=== PATIENT | male | born 1995 | race Caucasian/White ===

== ENCOUNTER 2019-06-28 12:33 | Emergency (ER) | payer SELFPAY ==
--- NOTE | 2019-06-28 12:53 | NUR ---
NOT IN LOBBY
--- NOTE | 2019-06-28 13:09 | NUR ---
NOT IN LOBBY
--- NOTE | 2019-06-28 13:20 | NUR ---
NOT IN LOBBY
== END 2019-06-28 13:21 | disposition left against medical advice (07) ==
LOC: ER 12:34
DX: Z53.21 Procedure and treatment not carried out due to patient leaving prior to being seen by health care provider (principal)

== ENCOUNTER 2019-06-28 13:51 | Emergency (ER) | payer SELFPAY | END 2019-06-28 15:06 | disposition home or self-care (01) | LOC: ER 13:51 | DX: Z02.79 Encounter for issue of other medical certificate (principal); F15.90 Other stimulant use, unspecified, uncomplicated; F11.90 Opioid use, unspecified, uncomplicated; F17.200 Nicotine dependence, unspecified, uncomplicated; Z59.0 Homelessness | CPT/HCPCS: 99281 ==

== ENCOUNTER 2019-07-12 03:42 | Emergency (ER) | payer SELFPAY ==
[~2019-07-12] VITALS: Ht 175.3 cm; Wt 75.0 kg
[2019-07-12 04:39] VITALS: BP 125/66
[2019-07-12] MEDS ORDERED: pantoprazole 40 MG vial IV ONE (05:35)
[2019-07-12] MEDS ORDERED: ondansetron/PF 4mg/2ml inj IV ONE (05:35)
[2019-07-12] MEDS ORDERED: normal saline 1000ML IV soln IVB ONE (05:35)
[2019-07-12] MEDS ORDERED: ondansetron 4mg rapidly disintigrating tab PO ONE (05:55)
[2019-07-12] MEDS ORDERED: pantoprazole 40mg Tablet.DR PO ONE (07:30)
== END 2019-07-12 06:41 | disposition home or self-care (01) ==
LOC: ER 03:43
DX: F19.10 Other psychoactive substance abuse, uncomplicated (principal); R10.13 Epigastric pain; R11.2 Nausea with vomiting, unspecified; F17.200 Nicotine dependence, unspecified, uncomplicated; F15.90 Other stimulant use, unspecified, uncomplicated; F11.90 Opioid use, unspecified, uncomplicated; Z72.89 Other problems related to lifestyle; Z60.2 Problems related to living alone; Z59.0 Homelessness
CPT/HCPCS: 99283

== ENCOUNTER 2019-08-29 19:40 | Emergency (ER) | payer OTHER, MEDICAID ==
[~2019-08-29] VITALS: Ht 175.3 cm; Wt 68.2 kg
[2019-08-29 19:51] VITALS: BP 130/76
[2019-08-29] MEDS ORDERED: CLIN-97 PO (20:16)
[2019-08-29] MEDS ORDERED: ketorolac tromethamine 15mg/ml inj. IM ONE ×2 (20:20→20:35)
[2019-08-29] MEDS ORDERED: ketorolac trometh. 30mg/ml inj. IM ONE (21:50)
== END 2019-08-29 21:59 | disposition home or self-care (01) ==
LOC: ER 19:41
DX: K05.10 Chronic gingivitis, plaque induced (principal); K04.01 Reversible pulpitis; K02.9 Dental caries, unspecified; F15.90 Other stimulant use, unspecified, uncomplicated; F11.90 Opioid use, unspecified, uncomplicated; Z86.19 Personal history of other infectious and parasitic diseases; Z60.2 Problems related to living alone; Z59.0 Homelessness; Z79.899 Other long term (current) drug therapy
CPT/HCPCS: 96372; 99283; J1885

== ENCOUNTER 2019-09-22 22:04 | Emergency (ER) | payer MEDICAID, OTHER ==
[~2019-09-22] VITALS: Ht 175.3 cm; Wt 76.4 kg
[~2019-09-22 22:04] MED LIST: CLIN-97 PO
[2019-09-22] MEDS ORDERED: aspirin 81mg tab.chew PO ONE (22:50)
[2019-09-22 23:03] LABS: URINE AMPHETAMINE SCREEN POSITIVE (Neg); URINE BARBITUATE SCREEN NEGATIVE (Neg); URINE BENZODIAZEPINES SCREEN NEGATIVE (Neg); URINE CANNABINOID SCREEN NEGATIVE (Neg); URINE COCAINE SCREEN NEGATIVE (Neg); URINE METHADONE SCREEN NEGATIVE (Neg); URINE OPIATE SCREEN POSITIVE (Neg); URINE PHENCYCLIDINE SCREEN NEGATIVE (Neg)
[2019-09-22 23:24] LABS: BASOPHILS % (AUTO) 0.2 % (0-1); EOSINOPHILS % (AUTO) 0.8 % (0-6); HEMOGLOBIN 15.3 g/dl (14.0-17.9); LYMPHOCYTES # (AUTO) 2.3 X10'3 (1.1-4.8); LYMPHOCYTES % (AUTO) 36.2 % (21-51); MEAN CORPUSCULAR HEMOGLOBIN 31.6 PG (27.0-31.0); MEAN CORPUSCULAR HGB CONC 34.8 g/dL (33.0-36.5); MEAN CORPUSCULAR VOLUME 90.8 FL (78-98); MEAN PLATELET VOLUME 9.4 FL (7.4-10.4); MONOCYTES # (AUTO) 0.8 X10'3 (0-0.9); MONOCYTES % (AUTO) 13.4 % (2-12); NEUTROPHILS # (AUTO) 3.1 X10'3 (1.8-7.7); NEUTROPHILS % (AUTO) 49.4 % (42-75); PLATELET COUNT 149 X10'3 (140-440); RED BLOOD COUNT 4.84 X10'6 (4.70-6.10); RED CELL DISTRIBUTION WIDTH 14.6 % (11.5-14.5); WHITE BLOOD COUNT 6.3 X10'3 (4.5-11.0)
[2019-09-22 23:39] LABS: ALANINE AMINOTRANSFERASE 336 U/L (12-78); ALBUMIN 4.2 G/DL (3.4-5.0); ALBUMIN/GLOBULIN RATIO 1.1 (1.1-1.5); ALKALINE PHOSPHATASE 139 IU/L (46-116); ANION GAP 8 (8-16); ASPARTATE AMINO TRANSFERASE 134 U/L (10-37); BLOOD UREA NITROGEN 18 MG/DL (7-18); BUN/CREATININE RATIO 18.2 (5.4-32.0); CALCIUM 8.9 MG/DL (8.5-10.1); CHLORIDE 102 MMOL/L (99-107); CREATININE 0.99 MG/DL (0.60-1.10); GLUCOSE 84 MG/DL (70-104); SODIUM 139 MMOL/L (135-145); TOTAL CARBON DIOXIDE 28.9 MMOL/L (24-32); eGFR > 90 ML/MIN
[2019-09-22 23:46] LABS: ETHANOL < 0.010 GM/DL (0.0-0.010); MAGNESIUM 2.1 MG/DL (1.5-2.4); TROPONIN I < 0.04 NG/ML (0.0-0.05)
[2019-09-23 00:06] VITALS: BP 126/71
[2019-11-06] MEDS ORDERED: CEPH500C5 PO (20:13)
[2019-11-06] MEDS ORDERED: NALO4SPR NS (20:15)
== END 2019-09-23 00:05 | disposition home or self-care (01) ==
LOC: ER 22:04
DX: R51 Headache (principal); R07.89 Other chest pain; H53.8 Other visual disturbances; R74.0 Nonspecific elevation of levels of transaminase and lactic acid dehydrogenase [LDH]; F15.90 Other stimulant use, unspecified, uncomplicated; F11.90 Opioid use, unspecified, uncomplicated; Z86.19 Personal history of other infectious and parasitic diseases; Z72.89 Other problems related to lifestyle; Z60.2 Problems related to living alone; Z59.0 Homelessness; Z79.899 Other long term (current) drug therapy
CPT/HCPCS: 36415; 70450; 71045; 80053; 80305; 80320; 83735; 83880; 84484; 85025; 93005; 99285

== ENCOUNTER 2019-11-04 10:50 | Emergency (ER) | payer MEDICAID ==
[~2019-11-04] VITALS: Ht 175.3 cm; Wt 54.5 kg
[2019-11-04 11:08] VITALS: BP 137/63
--- NOTE | 2019-11-06 10:03 | NUR ---
PT WOUND CULTURES BACK AND RESULTS MRSA. PT PUT ON BACTRIM AT [facility]. MRSA IS RESISTENT. KEFLEX 500MG BID X [address] HERNANDEZ. CALL PLACED TO [phone] AND MSG LEFT.
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
[2019-11-06] MEDS ORDERED: CEPH500C5 PO (20:13)
[2019-11-06] MEDS ORDERED: NALO4SPR NS (20:15)
== END 2019-11-04 11:40 | disposition home or self-care (01) ==
LOC: ER 10:50
DX: L02.415 Cutaneous abscess of right lower limb (principal); L03.115 Cellulitis of right lower limb; F15.90 Other stimulant use, unspecified, uncomplicated; F11.90 Opioid use, unspecified, uncomplicated; Z72.89 Other problems related to lifestyle; Z86.19 Personal history of other infectious and parasitic diseases; Z60.2 Problems related to living alone; Z59.0 Homelessness; Z79.899 Other long term (current) drug therapy
CPT/HCPCS: 87070; 87077; 87186; 99283

== ENCOUNTER 2020-01-08 09:18 | Emergency (ER) | payer MEDICAID ==
[~2020-01-08] VITALS: Ht 175.3 cm; Wt 75.0 kg
[~2020-01-08 09:18] MED LIST changes: +NALO4SPR NS
[2020-01-08] MEDS ORDERED: buprenorphine/naloxone 8mg/2mg SL tablet SL STA (10:19)
[2020-01-08] MEDS ORDERED: buprenorphine/naloxone 8MG-2MG SUBlingual film SL STA (10:22)
[2020-01-08] MEDS ORDERED: buprenorphine/naloxone 8MG-2MG SUBlingual film SL ONE (11:15)
[2020-01-08] MEDS ORDERED: buprenorphine/naloxone 8MG-2MG SUBlingual film SL SCH (11:15)
[2020-01-08] MEDS ORDERED: CHLO25CA10 PO (11:32)
[2020-01-08] MEDS ORDERED: BUPR1FIL5 SL (11:32)
[2020-01-08] MEDS ORDERED: ONDA4TAB6 PO (11:32)
[2020-01-08] MEDS ORDERED: GABA300C PO (11:32)
[2020-01-08 11:53] VITALS: BP 107/63
== END 2020-01-08 11:54 | disposition home or self-care (01) ==
LOC: ER 09:19
DX: F11.10 Opioid abuse, uncomplicated (principal); F15.10 Other stimulant abuse, uncomplicated; F10.10 Alcohol abuse, uncomplicated; Z86.19 Personal history of other infectious and parasitic diseases; Z60.2 Problems related to living alone; Z59.0 Homelessness; Z79.2 Long term (current) use of antibiotics; Z79.899 Other long term (current) drug therapy; Y90.9 Presence of alcohol in blood, level not specified
CPT/HCPCS: 99283

== ENCOUNTER 2020-02-11 | Emergency (ER) | payer MEDICAID ==
[~2020-02-11] VITALS: Ht 175.3 cm; Wt 79.0 kg
[~2020-02-11] MED LIST changes: +BUPR1FIL5 SL; +CHLO25CA10 PO; +GABA300C PO; +ONDA4TAB6 PO
[2020-02-11 00:05] VITALS: BP 125/72
[2020-02-11] MEDS ORDERED: SULF1TAB49 PO (00:47)
[2020-02-11] MEDS ORDERED: acetaminophen 325mg tablet PO ONE (01:00)
[2020-02-12] MEDS ORDERED: BACDS PO (16:25)
[2020-02-12] MEDS ORDERED: CEPH500C5 PO (16:25)
== END 2020-02-11 01:16 | disposition home or self-care (01) ==
LOC: ER
DX: L03.011 Cellulitis of right finger (principal); F15.90 Other stimulant use, unspecified, uncomplicated; F11.90 Opioid use, unspecified, uncomplicated; Z86.19 Personal history of other infectious and parasitic diseases; Z60.2 Problems related to living alone; Z59.0 Homelessness; Z79.2 Long term (current) use of antibiotics; Z79.899 Other long term (current) drug therapy
CPT/HCPCS: 99283

== ENCOUNTER 2020-02-12 03:07 | Emergency (ER) | payer MEDICAID ==
[~2020-02-12] VITALS: Ht 175.3 cm; Wt 75.0 kg
[~2020-02-12 03:07] MED LIST changes: +SULF1TAB49 PO
[2020-02-12 03:15] VITALS: BP 131/82
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
[2020-02-12] MEDS ORDERED: ondansetron 4mg rapidly disintigrating tab PO ONE (04:05)
[2020-02-12] MEDS ORDERED: acetaminophen 325mg tablet PO ONE (04:05)
[2020-02-12] MEDS ORDERED: ketorolac tromethamine 15mg/ml inj. IM ONE (05:00)
[2020-02-12] MEDS ORDERED: BACDS PO (16:25)
[2020-02-12] MEDS ORDERED: CEPH500C5 PO (16:25)
[2020-02-13] MEDS ORDERED: NO HOME MEDS (07:44)
== END 2020-02-12 05:52 | disposition home or self-care (01) ==
LOC: ER 03:07
DX: S06.0X0A Concussion without loss of consciousness, initial encounter (principal); S00.03XA Contusion of scalp, initial encounter; S00.83XA Contusion of other part of head, initial encounter; F15.90 Other stimulant use, unspecified, uncomplicated; F11.90 Opioid use, unspecified, uncomplicated; Z86.19 Personal history of other infectious and parasitic diseases; Z60.2 Problems related to living alone; Z59.0 Homelessness; Z79.2 Long term (current) use of antibiotics; Z79.899 Other long term (current) drug therapy; Y04.2XXA Assault by strike against or bumped into by another person, initial encounter; Y93.89 Activity, other specified; Y92.89 Other specified places as the place of occurrence of the external cause; Y99.8 Other external cause status
CPT/HCPCS: 70450; 70486; 96372; 99285; J1885; 99283

== ENCOUNTER 2020-02-12 12:07 | Inpatient (IN) | payer MEDICAID ==
[~2020-02-12] VITALS: Ht 167.6 cm; Wt 75.0 kg
[2020-02-12] MEDS ORDERED: acetaminophen 325mg tablet PO STA (12:36)
[2020-02-12] MEDS ORDERED: normal saline 1000ML IV soln IV ONE (12:40)
[2020-02-12] MEDS ORDERED: vancomycin/NS 1 GM ADD-VANTAGE 250 ML IV ONE (12:40)
[2020-02-12] MEDS ORDERED: piperacillin/tazo 3.375gm/50ml 50 ML IV ONE (12:40)
[2020-02-12 13:01] LABS: BASOPHILS # (AUTO) 0.1 X10'3 (0-0.2); BASOPHILS % (AUTO) 0.6 % (0-1); EOSINOPHILS % (AUTO) 0.1 % (0-6); HEMATOCRIT 40.7 % (42.0-52.0); LYMPHOCYTES # (AUTO) 1.5 X10'3 (1.1-4.8); LYMPHOCYTES % (AUTO) 8.6 % (21-51); MEAN CORPUSCULAR HEMOGLOBIN 30.6 PG (27.0-31.0); MEAN CORPUSCULAR HGB CONC 34.3 g/dL (33.0-36.5); MEAN CORPUSCULAR VOLUME 89.2 FL (78-98); MEAN PLATELET VOLUME 8.6 FL (7.4-10.4); MONOCYTES # (AUTO) 0.9 X10'3 (0-0.9); MONOCYTES % (AUTO) 5.3 % (2-12); NEUTROPHILS # (AUTO) 14.6 X10'3 (1.8-7.7); NEUTROPHILS % (AUTO) 85.4 % (42-75); PLATELET COUNT 210 X10'3 (140-440); RED BLOOD COUNT 4.57 X10'6 (4.70-6.10); RED CELL DISTRIBUTION WIDTH 13.6 % (11.5-14.5); WHITE BLOOD COUNT 17.1 X10'3 (4.5-11.0)
[2020-02-12 13:24] LABS: ALANINE AMINOTRANSFERASE 27 U/L (12-78); ALBUMIN 3.7 G/DL (3.4-5.0); ALBUMIN/GLOBULIN RATIO 0.8 (1.1-1.5); ALKALINE PHOSPHATASE 88 IU/L (46-116); ANION GAP 4 (8-16); ASPARTATE AMINO TRANSFERASE 22 U/L (10-37); BILIRUBIN,TOTAL 0.9 MG/DL (0.1-1.0); BLOOD UREA NITROGEN 13 MG/DL (7-18); BUN/CREATININE RATIO 13.8 (5.4-32.0); CALCIUM 8.8 MG/DL (8.5-10.1); CHLORIDE 99 MMOL/L (99-107); CREATININE 0.94 MG/DL (0.60-1.10); GLUCOSE 105 MG/DL (70-104); MAGNESIUM 1.9 MG/DL (1.5-2.4); POTASSIUM 4.3 MMOL/L (3.5-5.1); SODIUM 129 MMOL/L (135-145); TOTAL CARBON DIOXIDE 25.6 MMOL/L (24-32); TOTAL PROTEIN 8.4 G/DL (6.4-8.2); eGFR > 90 ML/MIN
[2020-02-12 13:25] LABS: HIV ANTIBODY 1&2 RAPID NON-REACTIVE (Neg)
[2020-02-12 13:55] LABS: CLARITY,URINE CLEAR (Clear); COLOR,URINE YELLOW (Yellow); GLUCOSE, URINE NEGATIVE (Neg); KETONES,URINE NEGATIVE (Neg); LEUKOCYTE ESTERASE ,URINE NEGATIVE (Neg); OCCULT BLOOD,URINE NEGATIVE (Neg); PH,URINE 7.5 (4.8-8.0); PROTEIN,URINE NEGATIVE (Neg)
[2020-02-12 14:00] LABS: NITRITES, URINE NEGATIVE (Neg); UROBILINOGEN,URINE 0.2 E.U/dL (0.2-1.0)
[2020-02-12 14:02] LABS: UA COLLECTION TYPE VOIDED
[2020-02-12] MEDS ORDERED: iohexol 300mg/ml 100ml inj. ONE (14:13)
[2020-02-12] MEDS ORDERED: LORazepam 2 mg/ml vial IV ONE (14:55)
[2020-02-12] MEDS ORDERED: HYDROcodone/acetaminophen 10/325mg tab PO ONE (14:55)
[2020-02-12] MEDS ORDERED: OLANZapine 5mg rapidly disint. tablet PO ONE (15:05)
[2020-02-12] MEDS ORDERED: CEPH500C5 PO (16:25)
[2020-02-12] MEDS ORDERED: BACDS PO (16:25)
[2020-02-12] MEDS ORDERED: potassium Cl 20 mEq SR tablet PO PRN (18:05)
[2020-02-12] MEDS ORDERED: magnesium 4gm in 100ml NS 100 ML IV PRN (18:05)
[2020-02-12] MEDS ORDERED: magnesium Cl slow-release 64mg tablet PO PRN (18:05)
[2020-02-12] MEDS ORDERED: mag hydrox/Alum hydrox/simeth 30ml oral suspension PO PRN (18:05)
[2020-02-12] MEDS ORDERED: potassium CL 10mEq/100ml bag 100 ML IV PRN ×2 (18:05)
[2020-02-12] MEDS ORDERED: acetaminophen 325mg tablet PO PRN ×2 (18:05)
[2020-02-12] MEDS ORDERED: ondansetron/PF 4mg/2ml inj IV PRN (18:05)
[2020-02-12] MEDS ORDERED: bisacodyl 10mg suppository rectal RC PRN (18:05)
[2020-02-12] MEDS: normal saline 1000ml 1,000 ML IV SCH (18:05)
[2020-02-12] MEDS ORDERED: magnesium 2GM in 50ml NS 50 ML IV PRN (18:05)
[2020-02-12] MEDS ORDERED: morphine 2 MG/ML inj. syringe IV PRN ×2 (18:05)
[2020-02-12] MEDS ORDERED: acetaminophen 650mg rectal suppository RC PRN (18:05)
[2020-02-12] MEDS ORDERED: magnesium hydroxide 30ml (MOM) UD suspension PO PRN (18:05)
--- NOTE | 2020-02-12 19:26 | NUR ---
assisting RN with pt, attempted IV x2, no success
[2020-02-12] MEDS: K and/or MAG REPLACEMENT MC SCH (20:00)
--- NOTE | 2020-02-12 20:57 | NUR ---
Report given to SHANELL Hartmann. Pt to be transfered from ED to ORTHO 4014.
--- NOTE | 2020-02-12 20:57 | NUR ---
Received report from SCHEDULER MAINTENANCESHANELL Holder. Patient to follow shortly.
--- NOTE | 2020-02-12 21:10 | NUR ---
Patient arrived to floor via w/c. Patient transferred himself into bed. VS taken.
[2020-02-12 21:20] VITALS: BP 133/78
[2020-02-12] MEDS: HYDROcodone/acetaminophen 10/325mg tab PO PRN (21:35)
[2020-02-12] MEDS: heparin, porcine 5000 units/ml vial SQ SCH (21:37)
--- NOTE | 2020-02-12 22:00 | NUR ---
Patient allowed for a quick MRSA swab to nose and a listen to heart,lungs,belly, but did not co-operative with 2 RN skin check or dart questions. Patient is not very receptive at this time.
[2020-02-13] MEDS: VANCOmycin 1250MG/NS 250ml Bag 250 ML IV SCH ×2 (00:54→16:06)
[2020-02-13] MEDS: piperacillin/tazo 3.375gm/50ml 50 ML IV SCH ×4 (02:55→23:52)
[2020-02-13] MEDS: normal saline 1000ml 1,000 ML IV SCH ×2 (04:05→05:07)
[2020-02-13] MEDS: HYDROcodone/acetaminophen 10/325mg tab PO PRN (05:07)
[2020-02-13 06:00] VITALS: BP 133/75
--- NOTE | 2020-02-13 06:30 | NUR ---
Patient in room ORTHO 4014. I have received report from Mary Kate REECE and had the opportunity to ask questions and assume patient care.
[2020-02-13 06:48] LABS: BASOPHILS % (AUTO) 0.2 % (0-1); EOSINOPHILS % (AUTO) 0.1 % (0-6); HEMATOCRIT 39.5 % (42.0-52.0); HEMOGLOBIN 13.2 g/dl (14.0-17.9); LYMPHOCYTES # (AUTO) 1.6 X10'3 (1.1-4.8); MEAN CORPUSCULAR HEMOGLOBIN 30.3 PG (27.0-31.0); MEAN CORPUSCULAR HGB CONC 33.4 g/dL (33.0-36.5); MEAN CORPUSCULAR VOLUME 90.8 FL (78-98); MEAN PLATELET VOLUME 9.3 FL (7.4-10.4); MONOCYTES # (AUTO) 1.1 X10'3 (0-0.9); MONOCYTES % (AUTO) 7.7 % (2-12); NEUTROPHILS # (AUTO) 11.7 X10'3 (1.8-7.7); PLATELET COUNT 161 X10'3 (140-440); RED BLOOD COUNT 4.35 X10'6 (4.70-6.10); RED CELL DISTRIBUTION WIDTH 13.6 % (11.5-14.5); WHITE BLOOD COUNT 14.4 X10'3 (4.5-11.0)
--- NOTE | 2020-02-13 06:53 | NUR ---
Problems reprioritized. Patient report given, questions answered & plan of care reviewed with Diego RN.
[2020-02-13 06:56] LABS: ALANINE AMINOTRANSFERASE 23 U/L (12-78); ALBUMIN 2.8 G/DL (3.4-5.0); ALBUMIN/GLOBULIN RATIO 0.7 (1.1-1.5); ALKALINE PHOSPHATASE 70 IU/L (46-116); ANION GAP 2 (8-16); ASPARTATE AMINO TRANSFERASE 15 U/L (10-37); BILIRUBIN,TOTAL 0.9 MG/DL (0.1-1.0); BLOOD UREA NITROGEN 8 MG/DL (7-18); BUN/CREATININE RATIO 7.7 (5.4-32.0); CALCIUM 7.9 MG/DL (8.5-10.1); CHLORIDE 103 MMOL/L (99-107); CHOL/HDL RATIO 2.1 (0.00-4.99); CHOLESTEROL 108 MG/DL (0-200); CREATININE 1.04 MG/DL (0.60-1.10); GLUCOSE 146 MG/DL (70-104); HDL CHOLESTEROL 51 MG/DL (35-60); LDL CHOLESTEROL 55 MG/DL (50-100); MAGNESIUM 1.9 MG/DL (1.5-2.4); PHOSPHORUS 2.5 MG/DL (2.3-4.5); POTASSIUM 3.3 MMOL/L (3.5-5.1); SODIUM 131 MMOL/L (135-145); TOTAL CARBON DIOXIDE 25.8 MMOL/L (24-32); TRIGLYCERIDES 37 MG/DL (20-135); eGFR 86 ML/MIN
[2020-02-13] MEDS ORDERED: NO HOME MEDS (07:44)
[2020-02-13] MEDS: K and/or MAG REPLACEMENT MC SCH ×2 (08:00→19:12)
[2020-02-13] MEDS: heparin, porcine 5000 units/ml vial SQ SCH ×2 (08:30→20:02)
[2020-02-13] MEDS: potassium Cl 20 mEq SR tablet PO PRN ×3 (09:48→23:52)
[2020-02-13] MEDS: HYDROcodone/acetaminophen 5mg/325mg tablet PO PRN ×4 (09:48→23:52)
[2020-02-13 10:00] VITALS: BP 135/75
[2020-02-13 18:00] VITALS: BP 108/60
--- NOTE | 2020-02-13 18:30 | NUR ---
Problems reprioritized. Patient report given, questions answered & plan of care reviewed with Vicenta REECE.
[2020-02-13] MEDS: lactobacillus rhamnosus 10,000 MMU CELLS/CAPSULE PO SCH (20:00)
[2020-02-13 20:17] LABS: CLARITY,URINE CLEAR (Clear); COLOR,URINE YELLOW (Yellow); GLUCOSE, URINE NEGATIVE (Neg); KETONES,URINE NEGATIVE (Neg); LEUKOCYTE ESTERASE ,URINE NEGATIVE (Neg); NITRITES, URINE NEGATIVE (Neg); OCCULT BLOOD,URINE NEGATIVE (Neg); PROTEIN,URINE NEGATIVE (Neg); UROBILINOGEN,URINE 0.2 E.U/dL (0.2-1.0)
[2020-02-13 20:18] LABS: UA COLLECTION TYPE NON-SPECIFIED
[2020-02-13 20:20] LABS: URINE AMPHETAMINE SCREEN NEGATIVE (Neg); URINE BARBITUATE SCREEN NEGATIVE (Neg); URINE BENZODIAZEPINES SCREEN NEGATIVE (Neg); URINE CANNABINOID SCREEN NEGATIVE (Neg); URINE COCAINE SCREEN NEGATIVE (Neg); URINE METHADONE SCREEN NEGATIVE (Neg); URINE OPIATE SCREEN POSITIVE (Neg); URINE PHENCYCLIDINE SCREEN NEGATIVE (Neg)
[2020-02-13 22:00] VITALS: BP 125/70
[2020-02-14] MEDS: normal saline 1000ml 1,000 ML IV SCH ×3 (00:05→16:26)
[2020-02-14] MEDS: HYDROcodone/acetaminophen 5mg/325mg tablet PO PRN ×4 (03:44→19:29)
[2020-02-14] MEDS: VANCOmycin 1250MG/NS 250ml Bag 250 ML IV SCH (03:44)
[2020-02-14 05:35] VITALS: BP 125/66
--- NOTE | 2020-02-14 06:37 | NUR ---
Problems reprioritized. Patient report given, questions answered & plan of care reviewed with SHANELL VELOZ.
[2020-02-14 07:41] LABS: BASOPHILS % (AUTO) 0.3 % (0-1); EOSINOPHILS # (AUTO) 0.1 X10'3 (0-0.9); EOSINOPHILS % (AUTO) 0.8 % (0-6); HEMATOCRIT 39.5 % (42.0-52.0); HEMOGLOBIN 13.6 g/dl (14.0-17.9); LYMPHOCYTES # (AUTO) 1.9 X10'3 (1.1-4.8); LYMPHOCYTES % (AUTO) 19.6 % (21-51); MEAN CORPUSCULAR HEMOGLOBIN 31.2 PG (27.0-31.0); MEAN CORPUSCULAR HGB CONC 34.4 g/dL (33.0-36.5); MONOCYTES # (AUTO) 0.9 X10'3 (0-0.9); MONOCYTES % (AUTO) 9.6 % (2-12); NEUTROPHILS # (AUTO) 6.9 X10'3 (1.8-7.7); NEUTROPHILS % (AUTO) 69.7 % (42-75); PLATELET COUNT 171 X10'3 (140-440); RED BLOOD COUNT 4.34 X10'6 (4.70-6.10); RED CELL DISTRIBUTION WIDTH 13.6 % (11.5-14.5); WHITE BLOOD COUNT 9.9 X10'3 (4.5-11.0)
[2020-02-14] MEDS: lactobacillus rhamnosus 10,000 MMU CELLS/CAPSULE PO SCH ×2 (07:47→19:28)
[2020-02-14] MEDS: heparin, porcine 5000 units/ml vial SQ SCH ×2 (07:50→19:32)
[2020-02-14 07:58] LABS: ALANINE AMINOTRANSFERASE 25 U/L (12-78); ALBUMIN 2.8 G/DL (3.4-5.0); ALBUMIN/GLOBULIN RATIO 0.6 (1.1-1.5); ALKALINE PHOSPHATASE 65 IU/L (46-116); ANION GAP 3 (8-16); ASPARTATE AMINO TRANSFERASE 15 U/L (10-37); BILIRUBIN,TOTAL 0.6 MG/DL (0.1-1.0); BLOOD UREA NITROGEN 9 MG/DL (7-18); BUN/CREATININE RATIO 11.5 (5.4-32.0); CALCIUM 8.3 MG/DL (8.5-10.1); CHLORIDE 106 MMOL/L (99-107); CREATININE 0.78 MG/DL (0.60-1.10); GLUCOSE 112 MG/DL (70-104); MAGNESIUM 2.2 MG/DL (1.5-2.4); PHOSPHORUS 3.1 MG/DL (2.3-4.5); POTASSIUM 3.8 MMOL/L (3.5-5.1); SODIUM 135 MMOL/L (135-145); TOTAL CARBON DIOXIDE 25.8 MMOL/L (24-32); TOTAL PROTEIN 7.4 G/DL (6.4-8.2); eGFR > 90 ML/MIN
[2020-02-14] MEDS: piperacillin/tazo 3.375gm/50ml 50 ML IV SCH ×2 (07:58→16:00)
[2020-02-14] MEDS: K and/or MAG REPLACEMENT MC SCH ×2 (08:00→19:33)
[2020-02-14 11:39] VITALS: BP 109/59
[2020-02-14] MEDS ORDERED: VANCOMYCIN LEVEL IV ONE ×2 (13:30)
--- NOTE | 2020-02-14 15:50 | NUR ---
Patient leaving for MRI for second attempt at this time, will hang Vanco when patient returns.
[2020-02-14 18:00] VITALS: BP 119/67
--- NOTE | 2020-02-14 18:27 | NUR ---
Problems reprioritized. Patient report given, questions answered & plan of care reviewed with SHANELL Stoner.
--- NOTE | 2020-02-14 18:27 | NUR ---
Patient in room ORTHO 4014. I have received report from Irene REECE and had the opportunity to ask questions and assume patient care.
[2020-02-14] MEDS ORDERED: piperacillin/tazo 3.375gm/50ml 50 ML IV ONE (20:30)
[2020-02-14 22:00] VITALS: BP 104/46
[2020-02-14] MEDS: HYDROcodone/acetaminophen 10/325mg tab PO PRN (22:03)
[2020-02-15] MEDS: piperacillin/tazo 3.375gm/50ml 50 ML IV SCH ×3 (00:19→17:28)
[2020-02-15] MEDS: HYDROcodone/acetaminophen 10/325mg tab PO PRN ×5 (03:08→20:19)
[2020-02-15] MEDS: normal saline 1000ml 1,000 ML IV SCH ×2 (03:08→16:05)
[2020-02-15 06:00] VITALS: BP 100/37
--- NOTE | 2020-02-15 06:05 | NUR ---
Problems reprioritized. Patient report given, questions answered & plan of care reviewed with Khushbu REECE.
--- NOTE | 2020-02-15 06:10 | NUR ---
Patient in room ORTHO 4014. I have received report from Vicenta and had the opportunity to ask questions and assume patient care. Addendum: 02/15/20 at 0641 by Khushbu Cedeno RN Report from [place]
[2020-02-15 06:18] LABS: ALANINE AMINOTRANSFERASE 30 U/L (12-78); ALBUMIN 2.6 G/DL (3.4-5.0); ALBUMIN/GLOBULIN RATIO 0.6 (1.1-1.5); ALKALINE PHOSPHATASE 65 IU/L (46-116); ANION GAP 8 (8-16); ASPARTATE AMINO TRANSFERASE 17 U/L (10-37); BASOPHILS % (AUTO) 0.4 % (0-1); BILIRUBIN,TOTAL 0.3 MG/DL (0.1-1.0); BLOOD UREA NITROGEN 8 MG/DL (7-18); BUN/CREATININE RATIO 10.5 (5.4-32.0); CALCIUM 8.4 MG/DL (8.5-10.1); CHLORIDE 104 MMOL/L (99-107); CREATININE 0.76 MG/DL (0.60-1.10); EOSINOPHILS # (AUTO) 0.1 X10'3 (0-0.9); EOSINOPHILS % (AUTO) 1.7 % (0-6); GLUCOSE 110 MG/DL (70-104); HEMATOCRIT 38.9 % (42.0-52.0); HEMOGLOBIN 13.4 g/dl (14.0-17.9); LYMPHOCYTES # (AUTO) 2.2 X10'3 (1.1-4.8); LYMPHOCYTES % (AUTO) 26.2 % (21-51); MAGNESIUM 2.2 MG/DL (1.5-2.4); MEAN CORPUSCULAR HEMOGLOBIN 31.4 PG (27.0-31.0); MEAN CORPUSCULAR HGB CONC 34.5 g/dL (33.0-36.5); MEAN PLATELET VOLUME 8.7 FL (7.4-10.4); MONOCYTES # (AUTO) 0.8 X10'3 (0-0.9); MONOCYTES % (AUTO) 9.8 % (2-12); NEUTROPHILS # (AUTO) 5.1 X10'3 (1.8-7.7); NEUTROPHILS % (AUTO) 61.9 % (42-75); PLATELET COUNT 174 X10'3 (140-440); POTASSIUM 3.9 MMOL/L (3.5-5.1); RED BLOOD COUNT 4.28 X10'6 (4.70-6.10); RED CELL DISTRIBUTION WIDTH 13.3 % (11.5-14.5); SODIUM 139 MMOL/L (135-145); TOTAL CARBON DIOXIDE 27.3 MMOL/L (24-32); TOTAL PROTEIN 6.8 G/DL (6.4-8.2); WHITE BLOOD COUNT 8.2 X10'3 (4.5-11.0); eGFR > 90 ML/MIN
[2020-02-15] MEDS: K and/or MAG REPLACEMENT MC SCH ×2 (08:00→20:00)
[2020-02-15] MEDS: lactobacillus rhamnosus 10,000 MMU CELLS/CAPSULE PO SCH ×2 (08:17→20:19)
[2020-02-15] MEDS: heparin, porcine 5000 units/ml vial SQ SCH ×2 (08:19→20:00)
[2020-02-15 10:00] VITALS: BP 102/51
[2020-02-15] MEDS ORDERED: LORazepam 2 mg/ml vial IV STA (10:00)
--- NOTE | 2020-02-15 10:02 | NUR ---
PAGER ID: [phone] MESSAGE: Khushbu Jc on ortho, Mr. Messer in [id number] is requesting ativan for the MRI, please advise, thank you #[phone]
--- NOTE | 2020-02-15 16:22 | NUR ---
PAGER ID: [phone] MESSAGE: Khushbu Jc on ortho, Or Gui in [id number] has c/o uncontrolled pain, anxiety, is being verbally aggressive/swearing, please advise, thank you # [phone]
[2020-02-15] MEDS ORDERED: LORazepam 1 MG tablet PO ONE (16:30)
--- NOTE | 2020-02-15 16:50 | NUR ---
Student documentation: I have reviewed and agree assessment performed and documented by Jacqueline Isabel [facility].
[2020-02-15 18:00] VITALS: BP 113/53
--- NOTE | 2020-02-15 18:24 | NUR ---
Problems reprioritized. Patient report given, questions answered & plan of care reviewed with Beevrly.
--- NOTE | 2020-02-15 18:30 | NUR ---
RECEIVED REPORT FROM SAIDA REECE AND ASSUMED PATIENT CARE
[2020-02-15] MEDS: LORazepam 1 MG tablet PO PRN (19:37)
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
[2020-02-15 22:00] VITALS: BP 109/47
[2020-02-16] MEDS: piperacillin/tazo 3.375gm/50ml 50 ML IV SCH ×3 (00:45→21:09)
[2020-02-16] MEDS ORDERED: VANCOMYCIN LEVEL IV ONE (02:30)
[2020-02-16 02:49] LABS: BASOPHILS # (AUTO) 0.1 X10'3 (0-0.2); BASOPHILS % (AUTO) 0.9 % (0-1); EOSINOPHILS # (AUTO) 0.2 X10'3 (0-0.9); EOSINOPHILS % (AUTO) 2.5 % (0-6); HEMOGLOBIN 13.5 g/dl (14.0-17.9); LYMPHOCYTES # (AUTO) 2.1 X10'3 (1.1-4.8); LYMPHOCYTES % (AUTO) 31.2 % (21-51); MEAN CORPUSCULAR HEMOGLOBIN 31.6 PG (27.0-31.0); MEAN CORPUSCULAR HGB CONC 34.7 g/dL (33.0-36.5); MEAN CORPUSCULAR VOLUME 91.1 FL (78-98); MEAN PLATELET VOLUME 8.5 FL (7.4-10.4); MONOCYTES # (AUTO) 0.7 X10'3 (0-0.9); NEUTROPHILS # (AUTO) 3.7 X10'3 (1.8-7.7); NEUTROPHILS % (AUTO) 55.4 % (42-75); PLATELET COUNT 198 X10'3 (140-440); RED BLOOD COUNT 4.28 X10'6 (4.70-6.10); RED CELL DISTRIBUTION WIDTH 13.5 % (11.5-14.5); WHITE BLOOD COUNT 6.6 X10'3 (4.5-11.0)
[2020-02-16 03:00] LABS: ALANINE AMINOTRANSFERASE 39 U/L (12-78); ALBUMIN 2.7 G/DL (3.4-5.0); ALBUMIN/GLOBULIN RATIO 0.7 (1.1-1.5); ALKALINE PHOSPHATASE 78 IU/L (46-116); ANION GAP 6 (8-16); ASPARTATE AMINO TRANSFERASE 23 U/L (10-37); BILIRUBIN,TOTAL 0.3 MG/DL (0.1-1.0); BLOOD UREA NITROGEN 6 MG/DL (7-18); BUN/CREATININE RATIO 7.5 (5.4-32.0); CALCIUM 8.5 MG/DL (8.5-10.1); CHLORIDE 105 MMOL/L (99-107); GLUCOSE 116 MG/DL (70-104); PHOSPHORUS 4.3 MG/DL (2.3-4.5); POTASSIUM 3.6 MMOL/L (3.5-5.1); SODIUM 139 MMOL/L (135-145); TOTAL CARBON DIOXIDE 28.2 MMOL/L (24-32); TOTAL PROTEIN 6.8 G/DL (6.4-8.2); VANCOMYCIN,TROUGH 9.8 UG/ML (6.0-14.0); eGFR > 90 ML/MIN
[2020-02-16] MEDS: LORazepam 1 MG tablet PO PRN ×3 (03:15→20:11)
[2020-02-16] MEDS: HYDROcodone/acetaminophen 10/325mg tab PO PRN ×5 (03:15→23:07)
[2020-02-16] MEDS: normal saline 1000ml 1,000 ML IV SCH ×3 (03:16→22:05)
[2020-02-16 06:00] VITALS: BP 96/41
--- NOTE | 2020-02-16 06:13 | NUR ---
REPORT GIVEN TO NEELA REECE
[2020-02-16] MEDS: K and/or MAG REPLACEMENT MC SCH ×2 (08:00→20:00)
[2020-02-16 10:00] VITALS: BP 100/57
[2020-02-16] MEDS ORDERED: DOXY-243 PO (10:06)
[2020-02-16] MEDS ORDERED: AMOX-117 PO (10:06)
[2020-02-16] MEDS: lactobacillus rhamnosus 10,000 MMU CELLS/CAPSULE PO SCH ×2 (10:35→20:12)
[2020-02-16] MEDS ORDERED: LORazepam 2 mg/ml vial IV ONE (10:50)
[2020-02-16] MEDS: VANCOmycin 1250MG/NS 250ml Bag 250 ML IV SCH ×2 (11:00→19:00)
[2020-02-16] MEDS: heparin, porcine 5000 units/ml vial SQ SCH ×2 (11:08→20:00)
--- NOTE | 2020-02-16 12:34 | NUR ---
Initial: Pt admit DX R index finger cellulitis and IVDA including meth per EMR. PO 75-100% avg regular diet meeting needs. LBM 02/12. No nutrition concerns at this time. Will continue to monitor. Rec: 1. continue regular diet 2. bowel care per rx 3. wt per rx Addendum: 02/16/20 at [address] Amended: Links added.
[2020-02-16] MEDS ORDERED: HYDR-4383 PO (14:34)
--- NOTE | 2020-02-16 15:14 | NUR ---
PAGER ID: [phone] MESSAGE: Martha [phone] re Mr Messer- I think we can secure a bed at [facility] for him tomorrow, any way we could keep him until then?
--- NOTE | 2020-02-16 17:55 | NUR ---
spoke to Dr Rodriguez and he agreed to hold dc until the am so the pt may be able to receive services for rehab. The pt is supposed receive a phone call from [place] at [facility] ext [phone] in [place], for a phone interview to determine if he is eligible. This was arranged thru [facility]. transpo would be through [facility]. Pt is aware and agrees that if the placement isn't successful and falls through that he will be dc'd thereafter. Addendum: 02/16/20 at 1814 by Kellie Ritchie RN pt needs to call [place] at [phone]
[2020-02-16 18:00] VITALS: BP 125/57
--- NOTE | 2020-02-16 18:32 | NUR ---
Patient in room ORTHO 4014. I have received report from Martha REECE and had the opportunity to ask questions and assume patient care.
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
[2020-02-16] MEDS: diphenhydrAMINE 25mg capsule PO PRN (20:24)
[2020-02-16 22:00] VITALS: BP 148/73
[2020-02-16] MEDS ORDERED: nicotine 21mg patch - 24 hr TD SCH (22:35)
[2020-02-17] MEDS: VANCOmycin 1250MG/NS 250ml Bag 250 ML IV SCH ×2 (03:21→11:00)
[2020-02-17] MEDS: normal saline 1000ml 1,000 ML IV SCH (03:22)
[2020-02-17] MEDS: LORazepam 1 MG tablet PO PRN ×2 (03:23→10:10)
[2020-02-17] MEDS: HYDROcodone/acetaminophen 10/325mg tab PO PRN ×2 (03:23→10:11)
[2020-02-17] MEDS: piperacillin/tazo 3.375gm/50ml 50 ML IV SCH ×2 (05:22→13:00)
[2020-02-17 06:00] VITALS: BP 123/69
--- NOTE | 2020-02-17 06:43 | NUR ---
Problems reprioritized. Patient report given, questions answered & plan of care reviewed with Martha REECE.
[2020-02-17 07:24] LABS: BASOPHILS % (AUTO) 0.4 % (0-1); EOSINOPHILS # (AUTO) 0.2 X10'3 (0-0.9); EOSINOPHILS % (AUTO) 2.5 % (0-6); HEMOGLOBIN 13.3 g/dl (14.0-17.9); LYMPHOCYTES % (AUTO) 32.2 % (21-51); MEAN CORPUSCULAR HGB CONC 34.1 g/dL (33.0-36.5); MEAN PLATELET VOLUME 8.3 FL (7.4-10.4); MONOCYTES # (AUTO) 0.6 X10'3 (0-0.9); MONOCYTES % (AUTO) 9.9 % (2-12); NEUTROPHILS # (AUTO) 3.5 X10'3 (1.8-7.7); PLATELET COUNT 206 X10'3 (140-440); RED BLOOD COUNT 4.29 X10'6 (4.70-6.10); RED CELL DISTRIBUTION WIDTH 13.1 % (11.5-14.5); WHITE BLOOD COUNT 6.3 X10'3 (4.5-11.0)
[2020-02-17 07:35] LABS: ALANINE AMINOTRANSFERASE 48 U/L (12-78); ALBUMIN 2.8 G/DL (3.4-5.0); ALBUMIN/GLOBULIN RATIO 0.7 (1.1-1.5); ALKALINE PHOSPHATASE 64 IU/L (46-116); ANION GAP 3 (8-16); ASPARTATE AMINO TRANSFERASE 25 U/L (10-37); BILIRUBIN,TOTAL 0.4 MG/DL (0.1-1.0); BLOOD UREA NITROGEN 7 MG/DL (7-18); CALCIUM 8.3 MG/DL (8.5-10.1); CHLORIDE 106 MMOL/L (99-107); CREATININE 0.88 MG/DL (0.60-1.10); GLUCOSE 93 MG/DL (70-104); MAGNESIUM 2.1 MG/DL (1.5-2.4); PHOSPHORUS 3.8 MG/DL (2.3-4.5); POTASSIUM 4.1 MMOL/L (3.5-5.1); SODIUM 139 MMOL/L (135-145); TOTAL CARBON DIOXIDE 29.7 MMOL/L (24-32); TOTAL PROTEIN 6.9 G/DL (6.4-8.2); eGFR > 90 ML/MIN
[2020-02-17] MEDS: heparin, porcine 5000 units/ml vial SQ SCH (08:00)
[2020-02-17] MEDS: K and/or MAG REPLACEMENT MC SCH (08:00)
[2020-02-17 10:00] VITALS: BP 143/67
[2020-02-17] MEDS: lactobacillus rhamnosus 10,000 MMU CELLS/CAPSULE PO SCH (10:10)
[2020-02-17] MEDS: diphenhydrAMINE 25mg capsule PO PRN (10:11)
[2020-02-17] MEDS ORDERED: FLU VACC QS2020-21(6MOS UP)/PF 60 MCG/0.5 ML SYRINGE IMVAC ONE (11:30)
[2020-02-17] MEDS ORDERED: VANCOMYCIN LEVEL IV ONE (18:30)
== END 2020-02-17 13:15 | disposition home or self-care (01) | DRG 383 ==
LOC: ER 12:07 → ED HOLD 18:01 → ORTHO 4S 21:10
PROVIDERS: ADMIT Family Medicine; ATTEND Family Medicine
DX: L03.011 Cellulitis of right finger (principal); B19.20 Unspecified viral hepatitis C without hepatic coma; F11.10 Opioid abuse, uncomplicated; F15.10 Other stimulant abuse, uncomplicated; Z59.0 Homelessness; Z72.0 Tobacco use; Z91.19 Patient's noncompliance with other medical treatment and regimen; Z23 Encounter for immunization; Z20.828 Contact with and (suspected) exposure to other viral communicable diseases
CPT/HCPCS: 36415; 71045; 73130; 73221; 74177; 80053; 80061; 80202; 80305; 81003; 83036; 83605; 83735; 84100; 84145; 85025; 86703; 87040; 87081; 87502; 87503; 87635; 93005; 93306; 93308; 96365; 99285; G0378; J1644; J2060; J2543; J3370; J7030; Q0163; Q9967

== ENCOUNTER 2020-03-13 09:20 | Emergency (ER) | payer MEDICAID ==
[~2020-03-13] VITALS: Ht 175.3 cm; Wt 72.9 kg
[~2020-03-13 09:20] MED LIST changes: -BUPR1FIL5 SL; -CHLO25CA10 PO; -CLIN-97 PO; -GABA300C PO; +HYDR-4383 PO; -NALO4SPR NS; -ONDA4TAB6 PO; -SULF1TAB49 PO
[2020-03-13 09:26] VITALS: BP 137/77
[2020-03-13] MEDS ORDERED: buprenorphine/naloxone 8MG-2MG SUBlingual film SL SCH (11:05)
== END 2020-03-13 11:45 | disposition home or self-care (01) ==
LOC: ER 09:20
DX: F15.10 Other stimulant abuse, uncomplicated (principal); F19.10 Other psychoactive substance abuse, uncomplicated; Z02.89 Encounter for other administrative examinations; Z86.19 Personal history of other infectious and parasitic diseases; Z72.89 Other problems related to lifestyle; Z60.2 Problems related to living alone; Z59.0 Homelessness; Z79.899 Other long term (current) drug therapy
CPT/HCPCS: 99283

== ENCOUNTER 2020-03-28 19:00 | Emergency (ER) | payer MEDICAID ==
[~2020-03-28] VITALS: Ht 175.3 cm; Wt 71.9 kg
--- NOTE | 2020-03-28 19:48 | NUR ---
BREAKING PRIMARY RN, PT LAYING IN BED, RESTLESS. VS WNL, WILL CONTINUE TO MONITOR AND OBSERVE
--- NOTE | 2020-03-28 20:42 | NUR ---
pt wa trying to get out of bed and leave but is not steady on his feet and is still restless in bed and unsteady on his feet. will continue to monitor
--- NOTE | 2020-03-28 22:38 | NUR ---
AMBULATED PT, UNSTEADY, NEEDED 2 PERSON ASSIST.
--- NOTE | 2020-03-29 01:06 | NUR ---
pt unable to be discharged he is unsteady in his feet and has none to pick him up, will continue to monitor, he is resting comfortably
--- NOTE | 2020-03-29 01:29 | NUR ---
PATIENT IN BED EYES CLOSED RR EVEN UN LABORED PATIENT HARD TO AROUSE, [id number] STILL CONFUSED, CN AWARE PATIENT IS NOT READY TO BE DISCHARGED AT THIS TIME
[2020-03-29] MEDS ORDERED: normal saline 1000ML IV soln IVB ONE (02:10)
[2020-03-29 03:41] VITALS: BP 108/55
--- NOTE | 2020-03-29 03:46 | NUR ---
PATIENT FAILED GAIT TEST , DUE TO SEVERE CONFUSION RR EVEN UN LABORED NO OBSERVABLE S/S OF ACUTE STRESS AT THIS TIME WILL CONTINUE TO MONITOR MD AWARE
--- NOTE | 2020-03-29 06:02 | NUR ---
PATIENT FAILED GAIT TEST AWARE
[2020-03-29 06:51] LABS: BASOPHILS % (AUTO) 0.4 % (0-1); EOSINOPHILS # (AUTO) 0.1 X10'3 (0-0.9); EOSINOPHILS % (AUTO) 1.4 % (0-6); HEMATOCRIT 35.4 % (42.0-52.0); HEMOGLOBIN 12.4 g/dl (14.0-17.9); LYMPHOCYTES # (AUTO) 2.1 X10'3 (1.1-4.8); LYMPHOCYTES % (AUTO) 19.9 % (21-51); MEAN CORPUSCULAR HEMOGLOBIN 31.4 PG (27.0-31.0); MEAN CORPUSCULAR VOLUME 89.7 FL (78-98); MEAN PLATELET VOLUME 8.9 FL (7.4-10.4); MONOCYTES # (AUTO) 0.9 X10'3 (0-0.9); MONOCYTES % (AUTO) 8.3 % (2-12); NEUTROPHILS # (AUTO) 7.5 X10'3 (1.8-7.7); PLATELET COUNT 125 X10'3 (140-440); RED BLOOD COUNT 3.95 X10'6 (4.70-6.10); RED CELL DISTRIBUTION WIDTH 13.1 % (11.5-14.5); WHITE BLOOD COUNT 10.7 X10'3 (4.5-11.0)
[2020-03-29 07:02] LABS: ALANINE AMINOTRANSFERASE 85 U/L (12-78); ALBUMIN/GLOBULIN RATIO 0.9 (1.1-1.5); ALKALINE PHOSPHATASE 54 IU/L (46-116); ANION GAP 6 (8-16); ASPARTATE AMINO TRANSFERASE 37 U/L (10-37); BILIRUBIN,TOTAL 1.1 MG/DL (0.1-1.0); BLOOD UREA NITROGEN 11 MG/DL (7-18); BUN/CREATININE RATIO 13.3 (5.4-32.0); CHLORIDE 109 MMOL/L (99-107); CREATININE 0.83 MG/DL (0.60-1.10); GLUCOSE 85 MG/DL (70-104); POTASSIUM 3.6 MMOL/L (3.5-5.1); SODIUM 141 MMOL/L (135-145); TOTAL CARBON DIOXIDE 26.1 MMOL/L (24-32); TOTAL PROTEIN 6.3 G/DL (6.4-8.2); eGFR > 90 ML/MIN
== END 2020-03-29 07:07 | disposition home or self-care (01) ==
LOC: ER 19:01
DX: F15.10 Other stimulant abuse, uncomplicated (principal); R45.1 Restlessness and agitation; F11.10 Opioid abuse, uncomplicated; Z59.0 Homelessness; Z87.19 Personal history of other diseases of the digestive system
CPT/HCPCS: 36415; 80053; 85025; 96360; 96361; 99284; J7030; 99285

== ENCOUNTER 2020-04-09 17:42 | Emergency (ER) | payer MEDICAID ==
[~2020-04-09] VITALS: Ht 175.3 cm; Wt 68.1 kg
== END 2020-04-09 18:39 | disposition home or self-care (01) ==
LOC: ER 17:43
DX: L03.115 Cellulitis of right lower limb (principal); F17.200 Nicotine dependence, unspecified, uncomplicated; F15.10 Other stimulant abuse, uncomplicated; F11.10 Opioid abuse, uncomplicated; Z59.0 Homelessness; Z87.19 Personal history of other diseases of the digestive system; W59.01XA Bitten by nonvenomous lizards, initial encounter; Y93.89 Activity, other specified; Y92.89 Other specified places as the place of occurrence of the external cause; Y99.8 Other external cause status
CPT/HCPCS: 99281; 99282

== ENCOUNTER 2020-04-18 18:37 | Emergency (ER) | payer MEDICAID ==
[~2020-04-18] VITALS: Ht 175.3 cm; Wt 75.0 kg
[2020-04-18 18:53] VITALS: BP 130/69
[2020-04-18] MEDS ORDERED: LIDOcaine 1% W/epiNEPHrine 1:200,000 10ml vial IJ ONE (20:10)
--- NOTE | 2020-04-18 20:43 | NUR ---
Pt not in room, belongings gone and gown on chair. Pt gave no indication that he was going to leave. Attempted to contact Pt by phone number listed. Call went to voicemail and message left.
== END 2020-04-18 21:11 | disposition left against medical advice (07) ==
LOC: ER 18:37
DX: L02.415 Cutaneous abscess of right lower limb (principal); L03.115 Cellulitis of right lower limb; F15.90 Other stimulant use, unspecified, uncomplicated; F11.90 Opioid use, unspecified, uncomplicated; Z86.19 Personal history of other infectious and parasitic diseases; Z72.89 Other problems related to lifestyle; Z60.2 Problems related to living alone; Z59.0 Homelessness; Z79.899 Other long term (current) drug therapy
CPT/HCPCS: 99283

== ENCOUNTER 2020-05-01 13:34 | Emergency (ER) | payer MEDICAID ==
[~2020-05-01] VITALS: Ht 177.8 cm; Wt 71.3 kg
[2020-05-01] MEDS ORDERED: normal saline 1000ML IV soln IVB ONE (13:45)
[2020-05-01] MEDS ORDERED: naloxone 2mg/2ml inj IV ONE (13:45)
[2020-05-01] MEDS ORDERED: naloxone 0.4 mg/ml inj IV ONE ×2 (13:45→16:10)
[2020-05-01 15:12] LABS: BASOPHILS % (AUTO) 0.5 % (0-1); EOSINOPHILS # (AUTO) 0.1 X10'3 (0-0.9); HEMATOCRIT 33.5 % (42.0-52.0); HEMOGLOBIN 11.5 g/dl (14.0-17.9); LYMPHOCYTES # (AUTO) 1.5 X10'3 (1.1-4.8); LYMPHOCYTES % (AUTO) 31.2 % (21-51); MEAN CORPUSCULAR HEMOGLOBIN 30.5 PG (27.0-31.0); MEAN CORPUSCULAR HGB CONC 34.3 g/dL (33.0-36.5); MEAN CORPUSCULAR VOLUME 88.9 FL (78-98); MEAN PLATELET VOLUME 8.6 FL (7.4-10.4); MONOCYTES # (AUTO) 0.6 X10'3 (0-0.9); MONOCYTES % (AUTO) 13.9 % (2-12); NEUTROPHILS # (AUTO) 2.4 X10'3 (1.8-7.7); NEUTROPHILS % (AUTO) 52.4 % (42-75); PLATELET COUNT 108 X10'3 (140-440); RED BLOOD COUNT 3.77 X10'6 (4.70-6.10); RED CELL DISTRIBUTION WIDTH 13.2 % (11.5-14.5); WHITE BLOOD COUNT 4.7 X10'3 (4.5-11.0)
[2020-05-01 15:37] LABS: ALANINE AMINOTRANSFERASE 332 U/L (12-78); ALBUMIN 2.9 G/DL (3.4-5.0); ALBUMIN/GLOBULIN RATIO 0.8 (1.1-1.5); ALKALINE PHOSPHATASE 89 IU/L (46-116); ANION GAP 7 (8-16); ASPARTATE AMINO TRANSFERASE 241 U/L (10-37); BILIRUBIN,TOTAL 0.8 MG/DL (0.1-1.0); BLOOD UREA NITROGEN 9 MG/DL (7-18); BUN/CREATININE RATIO 12.9 (5.4-32.0); CALCIUM 8.1 MG/DL (8.5-10.1); CHLORIDE 107 MMOL/L (99-107); ETHANOL < 0.010 GM/DL (0.0-0.010); GLUCOSE 89 MG/DL (70-104); POTASSIUM 3.4 MMOL/L (3.5-5.1); SODIUM 142 MMOL/L (135-145); TOTAL CARBON DIOXIDE 27.7 MMOL/L (24-32); TOTAL PROTEIN 6.4 G/DL (6.4-8.2); eGFR > 90 ML/MIN
[2020-05-01 17:09] VITALS: BP 123/84
[2020-05-01] MEDS ORDERED: NO HOME MEDS (17:22)
--- NOTE | 2020-05-01 17:22 | NUR ---
JACOBO [phone] DAD
[2020-05-01 17:23] LABS: URINE AMPHETAMINE SCREEN POSITIVE (Neg); URINE BARBITUATE SCREEN NEGATIVE (Neg); URINE BENZODIAZEPINES SCREEN NEGATIVE (Neg); URINE CANNABINOID SCREEN NEGATIVE (Neg); URINE COCAINE SCREEN NEGATIVE (Neg); URINE METHADONE SCREEN NEGATIVE (Neg); URINE OPIATE SCREEN POSITIVE (Neg); URINE PHENCYCLIDINE SCREEN NEGATIVE (Neg)
--- NOTE | 2020-05-01 17:55 | NUR ---
FATHER CALLED BACK AND CANNOT ROTARY DRILLER PROSPECTING HIS SON. FATHER STATES "HES A [employer] AND [place]ES [place] [address], HE DOES NOT LIVE WITH ME".
[2020-05-01] MEDS ORDERED: NALO4SPR BOTHNARES (18:05)
== END 2020-05-01 20:57 | disposition home or self-care (01) ==
LOC: ER 13:34
DX: T40.1X1A Poisoning by heroin, accidental (unintentional), initial encounter (principal); F15.90 Other stimulant use, unspecified, uncomplicated; F11.90 Opioid use, unspecified, uncomplicated; Z72.89 Other problems related to lifestyle; Z86.19 Personal history of other infectious and parasitic diseases; Z60.2 Problems related to living alone; Z59.0 Homelessness; Z79.899 Other long term (current) drug therapy; Y92.89 Other specified places as the place of occurrence of the external cause
CPT/HCPCS: 36415; 80053; 80305; 80320; 85025; 96374; 96376; 99284; J2310; J7030; 96361